=== PATIENT | male | born 1940 | race Caucasian/White ===

== ENCOUNTER 2017-03-19 14:17 | Emergency (ER) | payer MEDICARE, BC ==
[2017-03-19] MEDS ORDERED: Diph,Pert(Acell),Tet Vac 0.5 ML SYR IM ONE (14:26)
--- NOTE | 2017-03-19 14:31 | Emergency Department Record ---
History of Present Illness - General Chief Complaint: Laceration(s) Stated Complaint: RT HAND MIDDLE DIGIT LACERATION Time Seen by Provider: 03/19/17 14:26 Source: Patient, Family Mode of Arrival: Ambulatory Limitations: No limitations - History of Present Illness Initial Commments: 76 yo male presents with a laceration to his right middle finger. 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 No numbness or tingling. No loss of ROM. He has no knowledge of his last tetanus update. No recent illness. -: Minutes(s) Extremity Location: Right: Hand (middle finger) Place: Home Context: Accidental, Sharp object use Associated Symptoms: None Treatments Prior to Arrival: Bandage, Other (irrigated in the sink) - Sasha Coma Scale Eye Response: (4) Open spontaneously Motor Response: (6) Obeys commands Verbal Response: (5) Oriented Sasha Total: 15 - Related Data Home Medications Medication Instructions Recorded Confirmed Last Taken Atorvastatin Calcium [Lipitor] 40 mg PO QHS 03/19/17 03/19/17 03/18/17 Previous Rx's Medication Instructions Recorded Cephalexin [Keflex] 500 mg PO TID #21 cap 03/19/17 Allergies Allergy/AdvReac Type Severity Reaction Status Date / Time shellfish derived Allergy ANAPHYLAXIS Verified 03/19/17 14:29 Review of Systems Constitutional: Denies: Chills, Night sweats, Weakness Eyes: Denies: Eye discharge ENT: Denies: Congestion, Throat pain Respiratory: Denies: Cough Cardiovascular: Denies: Chest pain, Syncope Endocrine: Denies: Fatigue Gastrointestinal: Denies: Abdominal pain, Diarrhea, Nausea, Vomiting Genitourinary: Denies: Dysuria, Frequency, Hematuria Musculoskeletal: Denies: Arthralgia, Back pain, Joint swelling, Myalgia, Neck pain Skin: Reports: Other (laceration) Neurological: Denies: Headache Psychiatric: Denies: Anxiety Hematological/Lymphatic: Denies: Blood Clots, Easy bleeding, Easy bruising, Swollen glands Physical Exam - General General Appearance: Alert, Oriented x3, Cooperative, No acute distress Limitations: No limitations - Head Head exam: Atraumatic, Normocephalic, Normal inspection - Eye Eye exam: Normal appearance - ENT ENT exam: Normal exam Ear exam: Normal external inspection Nasal Exam: Normal inspection Mouth exam: Normal external inspection - Neck Neck exam: Normal inspection - Cardiovascular Peripheral Pulses: 2+: Radial (R) - Rectal Rectal exam: Deferred - exam: Deferred - Extremities Extremities exam: Full ROM, Normal capillary refill. negative: Normal inspection, Joint swelling, Tenderness Image of Hand: 1 - 1.5cm liniear clean laceration. Held in extension with full strength. No limitation to ROM - Neurological Neurological exam: Alert, Oriented X3. negative: Motor sensory deficit - Psychiatric Psychiatric exam: Normal affect, Normal mood - Skin Skin exam: Other (1.5cm finger laceration) Course - Reevaluation(s) Reevaluation #1: Procedure: Laceration Repair Digital Block with Lidocaine 1% plain without epi 3.5ml Betadine skin prep Tourniquet applied to establish bloodless field Copious irrigation with 500ml of NS In a bloodless field no FB seen. No contamination. The extensor tendon appears to have at least partial injury with laceration The wound was again irrigated with NS Ethilon 4-0 suture use to close the wound #4 The patient was informed of my concern about at least a partial tendon injury in spite of full ROM I recommended a referral for Hand Surgery follow up The patient and his are patient's of Dr Zeng of [place] I called the office for possible follow up An appointment was made for 03/21 at 9:15 am The patient's injury was dressed and splinted to prevent movement He will be placed on Keflex as well The chart will be faxed to [phone] at the office's request. 03/19/17 14:57 Disposition Disposition: Discharge Clinical Impression: Finger laceration, Extensor tendon laceration of finger with open wound Condition: (1) Good Instructions: Laceration (ED) Additional Instructions: Use the splint for support and to prevent bending that can interfere with the healing Immediately return to the ED if you have pain, redness, pus or any new concerns. You have an appointment with Dr Zeng at 9:15am on the for follow up of your injury Prescriptions: Cephalexin [Keflex] 500 mg PO TID #21 cap Forms: Patient Portal Access Time of Disposition: 15:08 Quality - Quality Measures Quality Measures: N/A - Blood Pressure Screening Does Patient Have Any of the Following: No Blood Pressure Classification: Pre-Hypertensive BP Reading Systolic Measurement: 141 Diastolic Measurement: 85 Screening for High Blood Pressure: < Pre-Hypertensive BP, F/U Documented > [ [id number]] Pre-Hypertensive Follow-up Interventions: Referral to alternative/primary care provider.
[2017-03-19] MEDS ORDERED: CEPHALEXIN 500 MG CAPSULE PO STA (14:53)
== END 2017-03-19 15:23 | disposition home or self-care (01) ==
LOC: ER 14:17
DX: S66.322A Laceration of extensor muscle, fascia and tendon of right middle finger at wrist and hand level, initial encounter (principal); W26.8XXA Contact with other sharp object(s), not elsewhere classified, initial encounter; Y93.H2 Activity, gardening and landscaping; Y92.009 Unspecified place in unspecified non-institutional (private) residence as the place of occurrence of the external cause
CPT/HCPCS: 12001; 90715; 96372; 99283; 99284

== ENCOUNTER 2017-07-15 09:31 | Day surgery (SDC) | payer MEDICARE, BC ==
[2017-07-15] MEDS ORDERED: PROPOFOL 10 MG/ML VIAL IV ONE (09:32)
[2017-07-15] MEDS ORDERED: LIDOCAINE 2% MDV (20MG/ML) 20ML VIAL IV ONE (09:32)
--- NOTE | 2017-07-16 12:50 | Operative Note ---
DATE OF SURGERY: 07/15/2017 OPERATION: COLONOSCOPY to the cecum with cold biopsy forceps polypectomy x2. INDICATION: Prior history of adenomatous polyps. The patient's last examination was approximately 3 years ago. He returns at this time for surveillance for adenomatous polyps. ANESTHESIA: Intravenous sedation was administered by the department of anesthesiology and included Diprivan titrated to effect. PROCEDURE: Following informed consent from this alert individual including a discussion of the risks and benefits of the procedure and an opportunity for the patient to ask questions, the patient was in the left lateral decubitus position. A digital rectal examination was performed. No abnormalities were noted. Following this, the Olympus [id number] video colonoscope was inserted into the rectum without resistance. The rectal mucosa had a normal appearance with normal folds and distensibility. The colonoscope was advanced up through the bowel to the level of the cecum without much difficulty. Throughout the bowel the mucosa appeared normal, the folds were normal, and the bowel was fairly well distensible. The cecum was defined by noting the appendiceal orifice and ileocecal valve. The colon preparation was good. Retroflexion in the cecum was endoscopically normal. From the base of the cecum, the colonoscope was then withdrawn. There were 2 polyps noted; one in the descending colon and one in the sigmoid colon each measuring approximately 3 mm in size. These were removed with cold biopsy forceps. Retroflexion in the rectum was endoscopically unremarkable. The endoscope was straightened and withdrawn. The colon preparation was good. The patient tolerated the procedure well and was returned to the recovery area in stable condition. IMPRESSION: Two diminutive polyps removed from the descending colon and sigmoid colon each measuring 3 mm in size and removed with biopsy forceps. RECOMMENDATIONS: Further recommendations will be forthcoming pending results of pathology obtained today. Followup will be with William Ward DO as well. As always, thank you for allowing me to participate in the care of your patient. CC: DO FAVIO Davidson
== END 2017-07-15 12:18 | disposition home or self-care (01) ==
LOC: HOP 09:31
PROVIDERS: ATTEND Internal Medicine Gastroenterology
DX: Z86.010 Personal history of colon polyps (principal); D12.5 Benign neoplasm of sigmoid colon; K63.5 Polyp of colon; E78.00 Pure hypercholesterolemia, unspecified